=== PATIENT | female | born 1980 | race Caucasian/White ===

== ENCOUNTER → 2020-01-20 12:58 | Outpatient (CLI) | payer OTHER, SELFPAY ==
--- NOTE | ~2020-01-20 | US_ITS ---
EXAMINATION: US pelvic complete DATE: 01/20/2020 13:15 INDICATION: Menorrhagia TECHNIQUE: Multiple transabdominal and endovaginal sonographic images of the pelvis were obtained. COMPARISON: None FINDINGS: The uterus measures 8.2 x 3.6 x 5.8 cm. The endometrial complex measures 8 mm. The right ov jazmine measures 2.7 x 1.8 x 2.5 cm. The left ovary measures 2.9 x 1.9 x 2.3 cm. There is normal vascular flow in the ovaries. There is no free fluid in the pelvis. IMPRESSION: 1. No sonographic correlate for the patient's symptoms. Reviewed, dictated and finalized at location A.
== END ==
PROVIDERS: PCP Family Medicine; Visit Provider Nurse Practitioner
DX: N92.0 Excessive and frequent menstruation with regular cycle (principal)
CPT/HCPCS: 76856

== ENCOUNTER 2020-05-07 00:36 | Outpatient (CLI) | payer OTHER, SELFPAY ==
[2020-05-07 19:17] LABS: SARS-CoV-2 RNA PCR Negative
== END 2020-05-07 00:37 | disposition home or self-care (01) ==
LOC: ANHCOVIDDT 00:36
PROVIDERS: PCP Family Medicine; Visit Provider Obstetrics & Gynecology Gynecology
DX: Z01.812 Encounter for preprocedural laboratory examination (principal); Z20.822 Contact with and (suspected) exposure to COVID-19
CPT/HCPCS: C9803; U0003; U0005

== ENCOUNTER 2022-07-18 10:04 | Outpatient (NON) | payer OTHER, SELFPAY | END 2022-07-18 10:05 | disposition home or self-care (01) | LOC: ANHLAB 07-19 10:06 | PROVIDERS: PCP Family Medicine; Visit Provider Nurse Practitioner | DX: D49.2 Neoplasm of unspecified behavior of bone, soft tissue, and skin (principal) | CPT/HCPCS: 88305 ==